=== PATIENT | male | born 1960 | race African-American/Black ===

== ENCOUNTER 2018-06-24 08:25 | Emergency (ER) | payer BC, MEDICAID ==
[~2018-06-24] VITALS: Ht 172.7 cm; Wt 72.6 kg
[2018-06-24 08:31] VITALS: BP_SYST 126
[2018-06-24] MEDS ORDERED: INSULIN REGULAR, HUMAN 10 UNITS/0.1 ML INJ SUBCUT ONE (09:15)
[2018-06-24 09:35] VITALS: BP_SYST 145
== END 2018-06-24 09:35 | disposition home or self-care (01) ==
LOC: SED 08:25
DX: E11.65 Type 2 diabetes mellitus with hyperglycemia (principal)
CPT/HCPCS: 82962; 96372; 99283; J1815

== ENCOUNTER 2022-12-24 16:20 | Emergency (ER) | payer BC ==
[~2022-12-24] VITALS: Ht 172.7 cm; Wt 68.0 kg
[2022-12-24 16:58] VITALS: RESP 18; TEMP 97.8
[2022-12-24 17:35] LABS: BASOPHILS % (AUTO) 0.2 % (0.0-2.0); EOSINOPHILS % (AUTO) 0.3 % (0.0-4.0); HEMATOCRIT 25.5 % (36-54); HEMOGLOBIN 8.2 g/dL (14.0-18.0); LYMPHOCYTES % (AUTO) 15.6 % (20.5-51.5); MEAN CORPUSCULAR HEMOGLOBIN 26 pg (27-31); MEAN CORPUSCULAR HGB CONC 32 % (32-36); MEAN CORPUSCULAR VOLUME 81 fL (79.0-98.0); MONOCYTES # (AUTO) 0.5 K/uL (0.0-1.0); MONOCYTES % (AUTO) 7.9 % (1.7-9.3); NEUTROPHILS # (AUTO) 4.9 K/uL (1.8-7.7); PLATELET COUNT (AUTO) 115 K/uL (130-430); RED BLOOD CELL COUNT(AUTO) 3.14 MIL/uL (4.2-6.2); RED CELL DISTRIBUTION WIDTH 20.2 % (9.0-15.0); WHITE BLOOD COUNT (AUTO) 6.4 K/uL (4.8-10.8)
[2022-12-24 17:45] LABS: ANION GAP 17 (5-15); CALCIUM 9.2 mg/dL (8.4-11.0); CARBON DIOXIDE 22 mmol/L (23-29); CHLORIDE 97 mmol/L (98-107); CREATININE 2.19 mg/dL (0.55-1.30); GFR AFRICAN AMERICAN 39 mL/min (>90); GLUCOSE 128 mg/dL (74-106); SODIUM SERUM 136 mmol/L (136-145); UREA NITROGEN, BLOOD 24 mg/dL (8-21)
[2022-12-24 17:53] LABS: ALANINE AMINOTRANSFERASE 31 U/L (12-78); ALBUMIN 3.6 g/dL (3.4-4.8); ASPARTATE AMINOTRANSFERASE 54 U/L (10-37); GFR NON AFRICAN-AMERICAN 32 mL/min (>90); LIPASE 572 U/L (73-393); TOTAL BILIRUBIN 0.5 mg/dL (0.0-1.0); TOTAL PROTEIN, SERUM 8.1 g/dL (6.4-8.3)
[2022-12-24 22:11] VITALS: BP_SYST 140; PULSE 82; RESP 18; TEMP 97.8; O2SAT 96
== END 2022-12-24 22:11 | disposition home or self-care (01) ==
LOC: SED 16:20
DX: F10.20 Alcohol dependence, uncomplicated (principal); D64.9 Anemia, unspecified; R74.8 Abnormal levels of other serum enzymes; N17.9 Acute kidney failure, unspecified; E11.9 Type 2 diabetes mellitus without complications; Z79.899 Other long term (current) drug therapy; Y90.6 Blood alcohol level of 120-199 mg/100 ml
CPT/HCPCS: 36415; 80053; 83690; 84484; 85025; 93005; 99284